=== PATIENT | female | born 1960 | race Caucasian/White ===

== ENCOUNTER → 2016-03-27 | Outpatient (CLI) | payer OTHER ==
--- NOTE | 2016-03-27 20:55 | DX ---
Three Views Left Shoulder Clinical Indications: Left shoulder pain; evaluate fracture healing, with comparison to previous ca dies of January 29, 2016 and January 04, 2016. Findings: The humeral head is normally located in the glenoid fossa. There is persistent cortical i rregularity of the greater tuberosity, unchanged when compared to the older studies. This may repres ent a mildly displaced fracture, which has healed in this orientation. No new fracture is seen. The bone alignment is normal. Impression: Stable alignment of the minimally displaced left greater tuberosity fracture, which may have healed in this position. No significant periosteal new bone formation is seen.
--- NOTE | 2016-03-27 20:57 | DX ---
3 Views Right Foot: Reason for examination: Pain following trauma. Findings: There is a mildly displaced fracture involving the distal shaft of the proximal phalanx of the right 4th toe. Additionally, there is a mildly comminuted and minimally displaced fracture of the distal end of the proximal phalanx of the right 5th toe. No radiopaque foreign body is seen. Impression: Fractures of the proximal phalanges of the right 4th and 5th toes.
== END ==
LOC: BMCIMAGING 18:59
PROVIDERS: ATTEND Family Medicine
DX: S92.511A Displaced fracture of proximal phalanx of right lesser toe(s), initial encounter for closed fracture (principal); S42.255D Nondisplaced fracture of greater tuberosity of left humerus, subsequent encounter for fracture with routine healing; W20.8XXA Other cause of strike by thrown, projected or falling object, initial encounter; X58.XXXD Exposure to other specified factors, subsequent encounter